=== PATIENT | male | born 1990 | race American Indian/Alaskan Native ===

== ENCOUNTER 2019-05-11 19:55 | Emergency (ER) | payer SELFPAY ==
[2019-05-11 21:52] VITALS: BP 114/89
[2019-05-11] MEDS ORDERED: ACETAMINOPHEN 500 MG TAB ONE (23:09)
[2019-05-11] MEDS ORDERED: IBUPROFEN 800 MG TAB ONE (23:10)
[2019-05-11] MEDS ORDERED: ACETAMINOPHEN 500 MG TAB PO ONE (23:14)
[2019-05-11] MEDS ORDERED: IBUPROFEN 800 MG TAB PO ONE (23:14)
== END 2019-05-12 00:21 | disposition left against medical advice (07) ==
LOC: ED 19:55
DX: G43.909 Migraine, unspecified, not intractable, without status migrainosus (principal); Z53.21 Procedure and treatment not carried out due to patient leaving prior to being seen by health care provider